=== PATIENT | female | born 1930 | race Caucasian/White ===

== ENCOUNTER 2017-07-17 19:29 | Inpatient (IN) | payer MEDICARE ==
--- NOTE | 2017-07-17 20:11 | ED Physician Chart ---
ED Chief Complaint/HPI - Patient Information Date Seen:: 07/17/17 Time Seen:: 21:45 Chief Complaint:: weakness History of Present Illness:: Patient has had poor oral intake and increased weakness over the last 2 weeks. Her balance has also been worse and she's fallen twice in the last 2 weeks. Daughter wants to admit patient to half-way. Historian:: Family Member Review:: Nurse's Note Reviewed ED Review of Systems - Review of Systems General/Constitutional: No fever, No chills, Weakness Skin: No skin lesions Head: No headache Eyes: No loss of vision ENT: No earache Neck: No neck pain Cardio Vascular: No chest pain GI: No nausea, No vomiting, No diarrhea G/U: No dysuria Musculoskeletal: No bone or joint pain, No back pain, No muscle pain Psychiatric: Prior psych history Hematopoietic: No bruising Allergic/Immuno: No urticaria Neurological: Syncope ED Past Medical History - Past Medical History Past Medical History: HTN, Dyslipidemia, Dementia Family History: None Social History: Non Smoker, No Alcohol Surgical History: None Psychiatricy History: Dementia Medication: Reviewed Family Medical History - Family Member Daughter Ethnicity: Living Status: Still Living ED Labs/Radiology/EKG Results - Lab Results Results: Laboratory Results - last 24 hr 07/17/17 07/17/17 22:04 22:04 WBC 6.4 RBC 4.38 Hgb 12.9 Hct 38.3 L MCV 87.5 MCH 29.5 MCHC Differential 33.8 RDW 12.7 Plt Count 239 MPV 8.8 Neutrophils % 64.5 Lymphocytes % 28.5 Monocytes % 6.0 Eosinophils % 0.4 Basophils % 0.6 Sodium 138 Potassium 4.0 Chloride 102 Carbon Dioxide 30.0 Anion Gap 10.0 BUN 30 H Creatinine 1.1 Est GFR ( Amer) TNP Est GFR (Non-Af Amer) TNP BUN/Creatinine Ratio 27.3 Glucose 116 H Calcium 9.5 Magnesium 2.1 ED Septic Shock - . Is Septic Shock (SBP<90, OR Lactate>4 mmol\L) present?: No ED Reassessment (Disposition) - Reassessment Reassessment Condition:: Unchanged - Diagnosis Diagnosis:: Dehydration - Patient Disposition Admitted to:: Med/Surg Admitting Medical Physician:: César Serrano Condition at Disposition:: Stable, Unchanged
[2017-07-17 22:10] LABS: % BASOPHILS 0.6 % (0.0-2.0); % EOSINOPHILS 0.4 % (0.0-5.0); % LYMPHOCYTES 28.5 % (20.0-50.0); % NEUTROPHILS 64.5 % (40.0-80.0); HEMATOCRIT 38.3 % (41.0-60); HEMOGLOBIN 12.9 gm/dL (12-16); LYMPHOCYTE ABSOLUTE 1.8 Th/cmm (1.5-3.0); MEAN CELL VOLUME 87.5 fl (81-100); MEAN CORPUSCULAR HEMOGLOBIN 29.5 pg (27.0-31.0); MEAN CORPUSCULAR HGB CONC 33.8 pg (28.0-36.0); MEAN PLATELET VOLUME 8.8 fl; MONOCYTE ABSOLUTE 0.4 Th/cmm (0.3-1.0); NEUTROPHILE ABSOLUTE 4.2 Th/cmm (1.8-8.0); PLATELET COUNT 239 Th/cmm (150-400); RED BLOOD COUNT 4.38 Mil/cmm (3.80-5.20); RED CELL DISTRIBUTION WIDTH 12.7 % (11.5-20.0); WHITE BLOOD COUNT 6.4 Th/cmm (4.8-10.8)
[2017-07-17 22:25] LABS: BUN - UREA NITROGEN 30 mg/dL (7-25); CALCIUM SERUM 9.5 mg/dL (8.6-10.3); CHLORIDE 102 mEq/L (98-107); CREATININE - SERUM 1.1 mg/dL (0.6-1.2); GLUCOSE 116 mg/dL (70-105); MAGNESIUM 2.1 mg/dL (1.9-2.7); SODIUM SERUM 138 mEq/L (136-145)
[2017-07-18 00:04] LABS: URINE MICROSCOPIC INDICATED? YES; URINE SOURCE RANDOM
[2017-07-18 00:19] LABS: URINE BILIRUBIN NEGATIVE (NEGATIVE); URINE BLOOD NEGATIVE (NEGATIVE); URINE CLARITY HAZY (CLEAR); URINE COLOR YELLOW; URINE GLUCOSE (UA) NEGATIVE (NEGATIVE); URINE KETONE NEGATIVE (NEGATIVE); URINE LEUKOCYTE ESTERASE MODERATE (NEGATIVE); URINE NITRATE POSITIVE (NEGATIVE); URINE PROTEIN NEGATIVE (NEGATIVE); URINE UROBILINOGEN 0.2 E.U./dL (0.2 - 1.0)
[2017-07-18 00:25] LABS: URINE EPITHELIAL CELLS FEW /lpf (FEW); URINE RBC 0-2 /hpf (0-5)
[2017-07-18 00:26] LABS: URINE BACTERIA 4+ /hpf (NONE SEEN)
[2017-07-18] MEDS ORDERED: cefTRIAXone 1 GM in Sodium Chloride 0.9% 50 ML IV ONE (01:04)
[2017-07-18 01:33] VITALS: BP 133/59
[2017-07-18] MEDS: D5-0.45NS w/20 mEq KCL 1,000 ML IV SCH ×2 (02:12→18:07)
[2017-07-18 06:57] LABS: % EOSINOPHILS 0.8 % (0.0-5.0); % LYMPHOCYTES 27.9 % (20.0-50.0); % MONOCYTES 8.1 % (2.0-10.0); % NEUTROPHILS 62.2 % (40.0-80.0); BASOPHILE ABSOLUTE 0.1 Th/cumm (0-0.2); HEMATOCRIT 36.4 % (41.0-60); HEMOGLOBIN 12.4 gm/dL (12-16); LYMPHOCYTE ABSOLUTE 1.5 Th/cmm (1.5-3.0); MEAN CELL VOLUME 86.3 fl (81-100); MEAN CORPUSCULAR HEMOGLOBIN 29.5 pg (27.0-31.0); MEAN CORPUSCULAR HGB CONC 34.1 pg (28.0-36.0); MEAN PLATELET VOLUME 9.5 fl; MONOCYTE ABSOLUTE 0.4 Th/cmm (0.3-1.0); NEUTROPHILE ABSOLUTE 3.5 Th/cmm (1.8-8.0); PLATELET COUNT 245 Th/cmm (150-400); RED BLOOD COUNT 4.21 Mil/cmm (3.80-5.20); RED CELL DISTRIBUTION WIDTH 12.4 % (11.5-20.0); WHITE BLOOD COUNT 5.5 Th/cmm (4.8-10.8)
[2017-07-18 07:25] LABS: ALB/GLOB RATIO 1.6 (1.0-1.8); ALBUMIN 4.2 gm/dL (3.7-5.3); ALKALINE PHOSPHATASE 49 U/L (34-104); ANION GAP 11.8 (7.0-16.0); BILIRUBIN,TOTAL 0.8 mg/dL (0.3-1.0); BUN - UREA NITROGEN 24 mg/dL (7-25); CALCIUM SERUM 9.3 mg/dL (8.6-10.3); CHLORIDE 104 mEq/L (98-107); GLUCOSE 108 mg/dL (70-105); POTASSIUM SERUM 3.8 mEq/L (3.5-5.1); SGOT 14 U/L (13-39); SGPT/ALT 10 U/L (7-52); SODIUM SERUM 138 mEq/L (136-145); TOTAL PROTEIN,SERUM 6.9 gm/dL (6.0-8.3)
[2017-07-18] MEDS ORDERED: cefTRIAXone 1 GM in Sodium Chloride 0.9% 50 ML IV SCH (14:15)
[2017-07-18] MEDS ORDERED: VTE Chemical Prophylaxis Screen/Admission MC PRN (16:59)
--- NOTE | 2017-07-18 18:17 | History & Physical ---
ADMIT DATE: 07/17/2017 CHIEF COMPLAINT: Altered level of consciousness and generalized weakness. HISTORY OF PRESENT ILLNESS: The patient is an 87-year-old female with long history of hypertension, degenerative joint disease, mild dementia, presented to the Emergency Room with altered level of consciousness. Initial workup sent for urinary tract infection, metabolic encephalopathy. Admitted to the hospital, started on IV fluid, IV antibiotic. The patient is a poor historian. PAST MEDICAL HISTORY: Significant for hypertension, mild dementia, degenerative joint disease. PAST SURGICAL HISTORY: No recent surgery. ALLERGIES: None. MEDICATIONS: Follow admission reconciliation. SOCIAL HISTORY: No smoking, no alcohol, no drug. FAMILY HISTORY: Noncontributory. REVIEW OF SYSTEMS: RENAL SYSTEM: No history of chronic renal disorder. CARDIOVASCULAR SYSTEM: History of hypertension. ENDOCRINE SYSTEM: No diabetes or thyroid problem. GASTROINTESTINAL SYSTEM: No upper or lower GI bleed. NEUROLOGICAL: She has history of dementia. PHYSICAL EXAMINATION: GENERAL: She is awake, not coherent. VITAL SIGNS: Temperature is 97.6, heart rate 66, blood pressure 133/59. HEENT: Normocephalic. Pupils are reacting to light and accommodation. The sclerae clear. NECK: Supple. Negative for lymphadenopathy, JVD or bruit. CHEST: Bilaterally normal. No rales, rhonchi or wheezing. HEART: S1, S2. No murmur or gallop rhythm. ABDOMEN: Soft, bowel sounds positive. EXTREMITIES: No edema. BACK: Nontender. SKIN: Intact. GENITAL AND RECTAL: No complaint. NEUROLOGIC: She is awake, alert, mildly confused. No focal motor or sensory deficits. Cranial nerves 2-12 are intact. LABORATORY DATA: White blood cell is 5.5, hemoglobin 12.4, hematocrit 36.4, platelet is 245. Sodium 138, potassium 3.8, BUN is 24, creatinine 1.0. Urinalysis: Specific gravity 0.015, nitrite positive, pH 6.0, white blood cells 10-25. ASSESSMENT: 1. Urinary tract infection. 2. Metabolic encephalopathy. 3. Hypertension. 4. Degenerative joint disease. 5. Mild dementia. PLAN: The patient admitted to the hospital under Dr. Serrano's service, started on fluid, IV antibiotic. Case discussed with the family. The patient is a full code. JOB# [id number]
[2017-07-18] MEDS: cefTRIAXone 1 GM in 0.9% NS 50 ML IV SCH (21:06)
[2017-07-19] MEDS: Atorvastatin Calcium 10 MG TAB PO SCH (09:49)
[2017-07-19] MEDS: D5-0.45NS w/20 mEq KCL 1,000 ML IV SCH (17:04)
--- NOTE | 2017-07-19 17:10 | General Progress Note ---
Subjective - Review of Systems Service Date: 07/19/17 Subjective: awake and smiling confused no distress daughter at bedside Objective - Results Result Diagrams: 07/18/17 06:27 07/18/17 06:27 Recent Labs: Laboratory Last Values WBC 5.5 Th/cmm (4.8-10.8) 07/18/17 06:27 RBC 4.21 Mil/cmm (3.80-5.20) 07/18/17 06:27 Hgb 12.4 gm/dL (12-16) 07/18/17 06:27 Hct 36.4 % (41.0-60) L 07/18/17 06:27 MCV 86.3 fl (81-100) 07/18/17 06: MCH 29.5 pg (27.0-31.0) 07/18/17 06: MCHC Differential 34.1 pg (28.0-36.0) 07/18/17 06: RDW 12.4 % (11.5-20.0) 07/18/17 06:27 Plt Count 245 Th/cmm (150-400) 07/18/17 06:27 MPV 9.5 fl 07/18/17 06:27 Neutrophils % 62.2 % (40.0-80.0) 07/18/17 06: Lymphocytes % 27.9 % (20.0-50.0) 07/18/17 06: Monocytes % 8.1 % (2.0-10.0) 07/18/17 06: Eosinophils % 0.8 % (0.0-5.0) 07/18/17 06:27 Basophils % 1.0 % (0.0-2.0) 07/18/17 06:27 Sodium 138 mEq/L (136-145) 07/18/17 06:27 Potassium 3.8 mEq/L (3.5-5.1) 07/18/17 06:27 Chloride 104 mEq/L (98-107) 07/18/17 06:27 Carbon Dioxide 26.0 mEq/L (21.0-31.0) 07/18/17 06: Anion Gap 11.8 (7.0-16.0) 07/18/17 06:27 BUN 24 mg/dL (7-25) 07/18/17 06:27 Creatinine 1.0 mg/dL (0.6-1.2) 07/18/17 06:27 Est GFR ( Amer) TNP 07/18/17 06:27 Est GFR (Non-Af Amer) TNP 07/18/17 06:27 BUN/Creatinine Ratio 24.0 07/18/17 06:27 Glucose 108 mg/dL (70-105) H 07/18/17 06:27 Calcium 9.3 mg/dL (8.6-10.3) 07/18/17 06:27 Magnesium 2.1 mg/dL (1.9-2.7) 07/17/17 22:04 Total Bilirubin 0.8 mg/dL (0.3-1.0) 07/18/17 06:27 AST 14 U/L (13-39) 07/18/17 06:27 ALT 10 U/L (7-52) 07/18/17 06:27 Alkaline Phosphatase 49 U/L (34-104) 07/18/17 06:27 Total Protein 6.9 gm/dL (6.0-8.3) 07/18/17 06:27 Albumin 4.2 gm/dL (3.7-5.3) 07/18/17 06:27 Globulin 2.7 gm/dL 07/18/17 06:27 Albumin/Globulin Ratio 1.6 (1.0-1.8) 07/18/17 06:27 Urine Source RANDOM 07/17/17 23:15 Urine Color YELLOW 07/17/17 23:15 Urine Clarity HAZY (CLEAR) 07/17/17 23:15 Urine pH 6.0 (4.6 - 8.0) 07/17/17 23:15 Ur Specific [place] 1.015 (1.005-1.030) 07/17/17 23:15 Urine Protein NEGATIVE mg/dL (NEGATIVE) 07/17/17 23:15 Urine Glucose (UA) NEGATIVE mg/dL (NEGATIVE) 07/17/17 23:15 Urine Ketones NEGATIVE mg/dL (NEGATIVE) 07/17/17 23:15 Urine Blood NEGATIVE (NEGATIVE) 07/17/17 23:15 Urine Nitrate POSITIVE (NEGATIVE) H 07/17/17 23:15 Urine Bilirubin NEGATIVE (NEGATIVE) 07/17/17 23:15 Urine Urobilinogen 0.2 E.U./dL (0.2 - 1.0) 07/17/17 23:15 Ur Leukocyte Esterase MODERATE (NEGATIVE) H 07/17/17 23:15 Urine RBC 0-2 /hpf (0-5) 07/17/17 23:15 Urine WBC 10-25 /hpf (0-5) H 07/17/17 23:15 Ur Epithelial Cells FEW /lpf (FEW) 07/17/17 23:15 Urine Bacteria 4+ /hpf (NONE SEEN) H 07/17/17 23:15 - Physical Exam Vitals and I&O: Vital Signs Temp 97.0 F 07/19/17 12:09 Pulse 98 07/19/17 12:09 Resp 20 07/19/17 12:09 BP 123/69 07/19/17 12:09 Pulse Ox 98 07/19/17 12:09 Intake & Output 07/18/17 07/19/17 07/19/17 18:59 06:59 18:59 Intake Total 1000 1000 Balance 1000 1000 Weight (lbs) 46.266 kg Intake: Intake, IV Amount 1000 1000 D5-0.45NS w/20 mEq KCL 1, 1000 1000 000 ml @ 75 mls/hr IV . [id number] [facility] Rx#:[id number] Other: # Voids 2 # Bowel Movements 0 Stool Characteristics Soft Soft Soft Brown Brown Brown Active Medications: Current Medications Atorvastatin Calcium (Lipitor) 10 mg PO DAILY [facility] Stop: 09/17/17 08:59 Last Admin: 07/19/17 09:49 Dose: 10 mg Heparin Sodium (Porcine) (Heparin) 5,000 units SUBQ Q12H [facility] Stop: 09/16/17 20:59 Last Admin: 07/19/17 09:49 Dose: 5,000 units Hydrochlorothiazide (Hctz) 25 mg PO DAILY [facility] Stop: 09/17/17 08:59 Last Admin: 07/19/17 09:49 Dose: 25 mg Potassium Chloride/Dextrose/Sod Cl (D5-0.45ns W/20 Meq Kcl) 1,000 mls @ 75 mls/ hr IV .[id number] [facility] Stop: 09/16/17 01:03 Last Admin: 07/19/17 17:04 Dose: 75 mls/hr Ceftriaxone Sodium 1 gm/ (Sodium Chloride) 50 mls @ 100 mls/hr IV Q24HR [facility] Stop: 09/16/17 20:59 Last Admin: 07/18/17 21:06 Dose: 100 mls/hr Losartan Potassium (Cozaar) 100 mg PO DAILY [facility] Stop: 09/17/17 08:59 Last Admin: 07/19/17 09:49 Dose: 100 mg Miscellaneous (Vte Chemical Prophylaxis Screen/ Admission) 1 ea [facility] PRN PRN PRN Reason: PROTOCOL Stop: 09/16/17 16:58 General: No acute distress HEENT: Atraumatic, PERRLA Neck: Supple, JVD Cardiovascular: Regular rate, Normal S1, Normal S2 Lungs: Clear to auscultation Abdomen: Bowel sounds, Soft Assessment/Plan - Assessment Assessment: UTI metabolic encephalopathy HTN DJD Dementia - Plan Plan: cont current treatment daughter wants SNF placement Nutritional Asmnt/Malnutr-PDOC - Dietary Evaluation Malnutrition Findings (Please click <Entered> for more info): Nutritional Asmnt/Malnutrition Start: 07/18/17 16: 04 Text: Status: Complete Freq: Document 07/18/17 16:04 LCHENG (Rec: 07/18/17 16:15 LCHENG [id number]) Nutritional Asmnt/Malnutrition Patient General Information Nutritional Screening High Risk Diagnosis dehydration, possible UTI Pertinent Medical Hx/Surgical Hx HTN, dyslipidemia, dementia Subjective Information Per H&P, pt had poor PO intake for 2 weeks, and has fallen twice. Pt seen lying in bed at time of visit, Bengali speaking, family at bedside. Spoke with nurse, pt ate lunch , tolerated well, needs assist with feeding. Current Diet Order/ Nutrition Support [facility] soft ground Pertinent Medications D5-0.45ns w 20meq kcl Pertinent Labs 2/2 Na 138, Na 3.8, Cl 104, BUN 24, Cr 1.0, Glucose 108, Ca 9.3 Nutritional Hx/Data Height 1.45 m Height (Calculated Centimeters) 144.8 Current Weight (lbs) 45.586 kg Weight (Calculated Kilograms) 45.6 Weight (Calculated Grams) 31265.0 [place] Body Weight 94 % [place] Body Weight 107 Body Mass Index (BMI) 21.7 Weight Status Approriate GI Symptoms GI Symptoms None Last BM no record Difficult in: None Skin Integrity/Comment: intact Estimated Nutritional Goals BEE in Kcals: Using Current wt Calories/Kcals/Kg 25-30 Kcals Calculated 0009-0509 Protein: Using Current wt Protein g/k-1.2 Protein Calculated 46-55 Fluid: ml 1150-1380ml (1ml/kcal) Nutritional Problem No current Nutrition Prob Problem N/A Malnutrition Alert Protein-Calorie Malnutrition N/A Is there a minimum of two criteria No selected? Query Text:Check all the applicable criteria. A minimum of two criteria are recommended for diagnosis of either severe or non-severe malnutrition. Intervention/Recommendation Comments 1. Continue with current diet as ordered. 2. Monitor PO intake, wt, labs and skin integrity 3. F/U as high risk in 2-3 days, 2/-2/ Expected Outcomes/Goals Expected Outcomes/Goals 1. PO intake to meet at least 75% of nutritional needs. 2. Wt stability, skin to remain intact, labs to approach WNL.
[2017-07-19] MEDS: cefTRIAXone 1 GM in 0.9% NS 50 ML IV SCH (22:22)
[2017-07-20] MEDS: Atorvastatin Calcium 10 MG TAB PO SCH (08:37)
--- NOTE | 2017-07-20 13:48 | General Progress Note ---
Subjective - Review of Systems Service Date: 07/20/17 Subjective: awake and smiling pleasantly confused no distress Objective - Results Result Diagrams: 07/18/17 06:27 07/18/17 06:27 Recent Labs: Laboratory Last Values WBC 5.5 Th/cmm (4.8-10.8) 07/18/17 06:27 RBC 4.21 Mil/cmm (3.80-5.20) 07/18/17 06:27 Hgb 12.4 gm/dL (12-16) 07/18/17 06:27 Hct 36.4 % (41.0-60) L 07/18/17 06:27 MCV 86.3 fl (81-100) 07/18/17 06: MCH 29.5 pg (27.0-31.0) 07/18/17 06: MCHC Differential 34.1 pg (28.0-36.0) 07/18/17 06: RDW 12.4 % (11.5-20.0) 07/18/17 06: Plt Count 245 Th/cmm (150-400) 07/18/17 06:27 MPV 9.5 fl 07/18/17 06:27 Neutrophils % 62.2 % (40.0-80.0) 07/18/17 06: Lymphocytes % 27.9 % (20.0-50.0) 07/18/17 06: Monocytes % 8.1 % (2.0-10.0) 07/18/17 06: Eosinophils % 0.8 % (0.0-5.0) 07/18/17 06: Basophils % 1.0 % (0.0-2.0) 07/18/17 06:27 Sodium 138 mEq/L (136-145) 07/18/17 06:27 Potassium 3.8 mEq/L (3.5-5.1) 07/18/17 06:27 Chloride 104 mEq/L (98-107) 07/18/17 06: Carbon Dioxide 26.0 mEq/L (21.0-31.0) 07/18/17 06: Anion Gap 11.8 (7.0-16.0) 07/18/17 06:27 BUN 24 mg/dL (7-25) 07/18/17 06:27 Creatinine 1.0 mg/dL (0.6-1.2) 07/18/17 06:27 Est GFR ( Amer) TNP 07/18/17 06:27 Est GFR (Non-Af Amer) TNP 07/18/17 06:27 BUN/Creatinine Ratio 24.0 07/18/17 06:27 Glucose 108 mg/dL (70-105) H 07/18/17 06:27 Calcium 9.3 mg/dL (8.6-10.3) 07/18/17 06:27 Magnesium 2.1 mg/dL (1.9-2.7) 07/17/17 22:04 Total Bilirubin 0.8 mg/dL (0.3-1.0) 07/18/17 06:27 AST 14 U/L (13-39) 07/18/17 06:27 ALT 10 U/L (7-52) 07/18/17 06:27 Alkaline Phosphatase 49 U/L (34-104) 07/18/17 06:27 Total Protein 6.9 gm/dL (6.0-8.3) 07/18/17 06:27 Albumin 4.2 gm/dL (3.7-5.3) 07/18/17 06:27 Globulin 2.7 gm/dL 07/18/17 06:27 Albumin/Globulin Ratio 1.6 (1.0-1.8) 07/18/17 06:27 Urine Source RANDOM 07/17/17 23:15 Urine Color YELLOW 07/17/17 23:15 Urine Clarity HAZY (CLEAR) 07/17/17 23:15 Urine pH 6.0 (4.6 - 8.0) 07/17/17 23:15 Ur Specific [place] 1.015 (1.005-1.030) 07/17/17 23:15 Urine Protein NEGATIVE mg/dL (NEGATIVE) 07/17/17 23:15 Urine Glucose (UA) NEGATIVE mg/dL (NEGATIVE) 07/17/17 23:15 Urine Ketones NEGATIVE mg/dL (NEGATIVE) 07/17/17 23:15 Urine Blood NEGATIVE (NEGATIVE) 07/17/17 23:15 Urine Nitrate POSITIVE (NEGATIVE) H 07/17/17 23:15 Urine Bilirubin NEGATIVE (NEGATIVE) 07/17/17 23:15 Urine Urobilinogen 0.2 E.U./dL (0.2 - 1.0) 07/17/17 23:15 Ur Leukocyte Esterase MODERATE (NEGATIVE) H 07/17/17 23:15 Urine RBC 0-2 /hpf (0-5) 07/17/17 23:15 Urine WBC 10-25 /hpf (0-5) H 07/17/17 23:15 Ur Epithelial Cells FEW /lpf (FEW) 07/17/17 23:15 Urine Bacteria 4+ /hpf (NONE SEEN) H 07/17/17 23:15 - Physical Exam Vitals and I&O: Vital Signs Temp 97.0 F 07/20/17 08:00 Pulse 66 07/20/17 08:36 Resp 18 07/20/17 08:00 BP 148/70 07/20/17 08:37 Pulse Ox 97 07/20/17 08:00 Intake & Output 07/19/17 07/20/17 07/20/17 18:59 06:59 18:59 Intake Total 1450 Balance 1450 Weight (lbs) 46.266 kg 45.722 kg Intake: Intake, IV Amount 1000 D5-0.45NS w/20 mEq KCL 1, 1000 000 ml @ 75 mls/hr IV . [id number] [facility] Rx#:[id number] Oral 450 Other: # Voids 2 3 # Bowel Movements 0 1 Stool Characteristics Soft Soft Soft Brown Brown Brown Active Medications: Current Medications Atorvastatin Calcium (Lipitor) 10 mg PO DAILY [facility] Stop: 09/17/17 08:59 Last Admin: 07/20/17 08:37 Dose: 10 mg Heparin Sodium (Porcine) (Heparin) 5,000 units SUBQ Q12H [facility] Stop: 09/16/17 20:59 Last Admin: 07/20/17 08:38 Dose: 5,000 units Hydrochlorothiazide (Hctz) 25 mg PO DAILY [facility] Stop: 09/17/17 08:59 Last Admin: 07/20/17 08:37 Dose: 25 mg Potassium Chloride/Dextrose/Sod Cl (D5-0.45ns W/20 Meq Kcl) 1,000 mls @ 75 mls/ hr IV .[id number] [facility] Stop: 09/16/17 01:03 Last Admin: 07/19/17 17:04 Dose: 75 mls/hr Ceftriaxone Sodium 1 gm/ (Sodium Chloride) 50 mls @ 100 mls/hr IV Q24HR [facility] Stop: 09/16/17 20:59 Last Admin: 07/19/17 22:22 Dose: 100 mls/hr Losartan Potassium (Cozaar) 100 mg PO DAILY [facility] Stop: 09/17/17 08:59 Last Admin: 07/20/17 08:36 Dose: 100 mg Miscellaneous (Vte Chemical Prophylaxis Screen/ Admission) 1 ea [facility] PRN PRN PRN Reason: PROTOCOL Stop: 09/16/17 16:58 General: No acute distress HEENT: Atraumatic, PERRLA Neck: Supple, JVD Cardiovascular: Regular rate, Normal S1, Normal S2 Lungs: Clear to auscultation Abdomen: Bowel sounds, Soft Assessment/Plan - Assessment Assessment: UTI metabolic encephalopathy HTN DJD Dementia - Plan Plan: cont current treatment Nutritional Asmnt/Malnutr-PDOC - Dietary Evaluation Malnutrition Findings (Please click <Entered> for more info): Nutritional Asmnt/Malnutrition Start: 07/18/17 16: 04 Text: Status: Complete Freq: Document 07/18/17 16:04 LCHENG (Rec: 07/18/17 16:15 L[facility]ENG [email or web address]) Nutritional Asmnt/Malnutrition Patient General Information Nutritional Screening High Risk Diagnosis dehydration, possible UTI Pertinent Medical Hx/Surgical Hx HTN, dyslipidemia, dementia Subjective Information Per H&P, pt had poor PO intake for 2 weeks, and has fallen twice. Pt seen lying in bed at time of visit, Portuguese speaking, family at bedside. Spoke with nurse, pt ate lunch , tolerated well, needs assist with feeding. Current Diet Order/ Nutrition Support [facility] soft ground Pertinent Medications D5-0.45ns w 20meq kcl Pertinent Labs 2/2 Na 138, Na 3.8, Cl 104, BUN 24, Cr 1.0, Glucose 108, Ca 9.3 Nutritional Hx/Data Height 1.45 m Height (Calculated Centimeters) 144.8 Current Weight (lbs) 45.586 kg Weight (Calculated Kilograms) 45.6 Weight (Calculated Grams) 43685.0 [place] Body Weight 94 % [place] Body Weight 107 Body Mass Index (BMI) 21.7 Weight Status Approriate GI Symptoms GI Symptoms None Last BM no record Difficult in: None Skin Integrity/Comment: intact Estimated Nutritional Goals BEE in Kcals: Using Current wt Calories/Kcals/Kg 25-30 Kcals Calculated 5756-2261 Protein: Using Current wt Protein g/k-1.2 Protein Calculated 46-55 Fluid: ml 1150-1380ml (1ml/kcal) Nutritional Problem No current Nutrition Prob Problem N/A Malnutrition Alert Protein-Calorie Malnutrition N/A Is there a minimum of two criteria No selected? Query Text:Check all the applicable criteria. A minimum of two criteria are recommended for diagnosis of either severe or non-severe malnutrition. Intervention/Recommendation Comments 1. Continue with current diet as ordered. 2. Monitor PO intake, wt, labs and skin integrity 3. F/U as high risk in 2-3 days, 2/-2/ Expected Outcomes/Goals Expected Outcomes/Goals 1. PO intake to meet at least 75% of nutritional needs. 2. Wt stability, skin to remain intact, labs to approach WNL.
[2017-07-20] MEDS: D5-0.45NS w/20 mEq KCL 1,000 ML IV SCH (13:57)
[2017-07-20] MEDS: cefTRIAXone 1 GM in 0.9% NS 50 ML IV SCH (20:46)
[2017-07-21] MEDS: D5-0.45NS w/20 mEq KCL 1,000 ML IV SCH (03:04)
[2017-07-21] MEDS: Atorvastatin Calcium 10 MG TAB PO SCH (08:06)
--- NOTE | 2017-08-07 20:26 | Discharge Summary ---
DATE OF DISCHARGE: 07/21/2017 FINAL DIAGNOSES: 1. Urinary infection. 2. Metabolic encephalopathy. 3. Hypertension. 4. Degenerative joint disease. 5. Mild dementia. REVIEW OF HISTORY: The patient is an 87-year-old female with long history of hypertension, degenerative joint disease, mild dementia, presented to the Emergency Room with altered level of consciousness. Since her initial workup, seen for urinary infection, metabolic encephalopathy, admitted to the hospital, started on IV fluid and antibiotic. PHYSICAL EXAMINATION: VITAL SIGNS: Temperature 97.6, heart rate 66, blood pressure 133/59. CHEST: Clear to auscultation. ABDOMEN: Soft, bowel sounds positive. EXTREMITIES: No edema. NEUROLOGIC: Awake, alert, not fully oriented. LABORATORY DATA: White blood 5.5, hemoglobin 12.4, hematocrit 36.4. Sodium 138, potassium 3.8, BUN 24, creatinine 1.0. COURSE OF HOSPITALIZATION: During hospitalization, the patient improved clinically. On 07/19/2017, the patient is eating well. No chest pain, no shortness of breath, no nausea, no vomiting. On 07/20/2017, the patient was tolerating her feeding well and medication. PT evaluation and treatment ordered. On 07/21/2017, the patient was clinically stable. DISPOSITION: [facility] medication and diet. CONDITION ON DISCHARGE: Stable. MEDICATIONS: Follow discharge reconciliation. JOB# [id number]
== END 2017-07-21 17:00 | DRG 689 ==
LOC: ER 19:29 → MSI 23:30
PROVIDERS: ADMIT Family Medicine; ATTEND Family Medicine
DX: N39.0 Urinary tract infection, site not specified (principal); G93.41 Metabolic encephalopathy; F03.90 Unspecified dementia, unspecified severity, without behavioral disturbance, psychotic disturbance, mood disturbance, and anxiety; E86.0 Dehydration; I10 Essential (primary) hypertension; M19.90 Unspecified osteoarthritis, unspecified site; E78.5 Hyperlipidemia, unspecified; Z66 Do not resuscitate
CPT/HCPCS: 36415-UA; 80048-TC; 80053-TC; 81001-TC; 81003-TC; 83735-TC; 85025-TC; 87086-90; 90784; J0696; J1644; X3904

== ENCOUNTER 2017-09-18 20:35 | Inpatient (IN) | payer MEDICARE, MEDICAID ==
--- NOTE | 2017-09-18 21:05 | ED Physician Chart ---
ED Chief Complaint/HPI - Patient Information Date Seen:: 09/18/17 Time Seen:: 20:50 Chief Complaint:: poor oral intake History of Present Illness:: Patient's had poor oral intake for 3 days. Patient has dementia and is unable to provide any history. Allergies:: Allergies Allergy/AdvReac Type Severity Reaction Status Date / Time aspirin Allergy Verified 09/18/17 20:53 Historian:: Patient Review:: Transfer documents Reviewed ED Review of Systems - Review of Systems General/Constitutional: Loss of appetite Skin: Skin lesions Head: No headache Eyes: No loss of vision ENT: No earache Neck: No neck pain, No swelling Cardio Vascular: No chest pain, No palpitations Pulmonary: No SOB GI: No nausea, No vomiting, No diarrhea Musculoskeletal: No bone or joint pain, No back pain, No muscle pain Endocrine: No polyuria, No polydipsia Psychiatric: Prior psych history Hematopoietic: No bruising, No lymphadenopathy Allergic/Immuno: No urticaria, No angioedema Neurological: No syncope ED Past Medical History - Past Medical History Past Medical History: HTN, Asthma/COPD, Dyslipidemia, Dementia, Other ( hyperlipidemia; metabolic encephalopathy) Family History: Other (unavailable) Social History: Care Facility Surgical History: other (unknown) Psychiatricy History: Dementia Medication: Reviewed Family Medical History - Family Member Daughter History Unknown: Yes Ethnicity: Living Status: Still Living Mother History Unknown: Yes ED Physical Exam - Physical Examination General/Constitutional: Well-developed, well-nourished, Alert Other Gen/Cons comments:: Patient is minimally verbal Head: Atraumatic Eyes: Lids, conjuctiva normal, PERRL Skin: Nl inspection, No rash, No skin lesions, No ecchymosis, Well hydrated ENMT: External ears, nose nl, Nasal exam nl, Lips, teeth, gums nl Respiratory: Clear to Auscultation Cardio Vascular: RRR, No murmur, gallop, rubs, NL S1 S2 GI: No tenderness/rebounding/guarding, No organomegaly, No hernia, Normal BS's, Nondistended, No mass/bruits : No CVA tenderness Extremities: Normal digits & nails Neuro/Psych: No focal deficits ED Labs/Radiology/EKG Results - Lab Results Results: Laboratory Results - last 24 hr 09/18/17 09/18/17 21:00 21:00 WBC 7.9 RBC 4.70 Hgb 13.9 Hct 40.8 L MCV 86.7 MCH 29.6 MCHC Differential 34.1 RDW 12.2 Plt Count 329 MPV 8.9 Neutrophils % 77.0 Lymphocytes % 18.7 L Monocytes % 3.5 Eosinophils % 0.6 Basophils % 0.2 Sodium 136 Potassium 3.2 L Chloride 99 Carbon Dioxide 26.6 Anion Gap 13.6 BUN 19 Creatinine 0.8 Est GFR ( Amer) TNP Est GFR (Non-Af Amer) TNP BUN/Creatinine Ratio 23.8 Glucose 129 H Calcium 9.6 - Radiology Results Results: Chest x-ray showed increased interstitial markings but was otherwise normal - EKG Interpretations Rate & Rhythm: normal sinus rhythm with a rate of 88 [place]: normal Comments:: Q waves in leads 3 and aVF ED Reassessment (Disposition) - Reassessment Reassessment Condition:: Unchanged - Diagnosis Diagnosis:: Hypokalemia; dementia
[2017-09-18 21:13] LABS: % BASOPHILS 0.2 % (0.0-2.0); % EOSINOPHILS 0.6 % (0.0-5.0); % LYMPHOCYTES 18.7 % (20.0-50.0); % MONOCYTES 3.5 % (2.0-10.0); HEMATOCRIT 40.8 % (41.0-60); HEMOGLOBIN 13.9 gm/dL (12-16); LYMPHOCYTE ABSOLUTE 1.5 Th/cmm (1.5-3.0); MEAN CELL VOLUME 86.7 fl (81-100); MEAN CORPUSCULAR HEMOGLOBIN 29.6 pg (27.0-31.0); MEAN CORPUSCULAR HGB CONC 34.1 pg (28.0-36.0); MEAN PLATELET VOLUME 8.9 fl; MONOCYTE ABSOLUTE 0.3 Th/cmm (0.3-1.0); NEUTROPHILE ABSOLUTE 6.1 Th/cmm (1.8-8.0); PLATELET COUNT 329 Th/cmm (150-400); RED CELL DISTRIBUTION WIDTH 12.2 % (11.5-20.0); WHITE BLOOD COUNT 7.9 Th/cmm (4.8-10.8)
[2017-09-18 21:25] LABS: ANION GAP 13.6 (7.0-16.0); BUN - UREA NITROGEN 19 mg/dL (7-25); CALCIUM SERUM 9.6 mg/dL (8.6-10.3); CARBON DIOXIDE 26.6 mEq/L (21.0-31.0); CHLORIDE 99 mEq/L (98-107); CREATININE - SERUM 0.8 mg/dL (0.6-1.2); GLUCOSE 129 mg/dL (70-105); POTASSIUM SERUM 3.2 mEq/L (3.5-5.1); SODIUM SERUM 136 mEq/L (136-145)
[2017-09-18] MEDS ORDERED: Potassium Chloride 20 mEq ER Tab PO ONE ×2 (21:34→21:35)
[2017-09-18 23:35] VITALS: BP 107/74
[2017-09-19] MEDS: D5-0.45NS w/20 mEq KCL 1,000 ML IV SCH ×2 (00:36→14:27)
--- NOTE | 2017-09-19 07:26 | Diagnostic Imaging Report ---
CHEST X-RAY: AP view INDICATION: Pneumonia COMPARISON: None FINDINGS: Chronic lung changes are noted. There is no focal consolidation or pleural effusions. Vessel on end versus 6 mm calcified granuloma of the right lower lobe is noted. The heart is normal in size. Atherosclerosis is noted. Degenerative changes of the spine are noted. Nonspecific gas-filled loops of bowel of the upper abdomen are noted. IMPRESSION: Chronic lung changes with no focal consolidation identified. Atherosclerotic vascular disease.
[2017-09-19] MEDS ORDERED: VTE Chemical Prophylaxis Screen/Admission MC PRN (14:11)
[2017-09-19] MEDS ORDERED: Magnesium Hydroxide (MOM) 30 mL UDC PO PRN (20:26)
--- NOTE | 2017-09-19 21:08 | Consultation ---
DATE OF CONSULTATION: 09/19/2017 IDENTIFYING INFORMATION: The patient is an 87-year-old female. REASON FOR CONSULTATION: To assess. HISTORY OF PRESENT ILLNESS: The patient was admitted with altered level of consciousness. The patient is a well-known case to me, has been seeing her at [facility]. She is demented, confused. The patient is unable to give information, I talked to her through a security monitor, was unable to tell the date, where she is, why she was here. Also, she has been eating well for a few days, unable to give any information. PAST PSYCHIATRIC HISTORY: Dementia. MEDICAL HISTORY: The patient has hypertension, asthma, COPD, dyslipidemia, metabolic encephalopathy. MEDICATIONS: I do not see any medication ordered for her. I do have her on Aricept 10 mg at bedtime that I will restart. ADDENDUM MEDICAL HISTORY: THE PATIENT IS ALLERGIC TO ASPIRIN. I will reinitiate the Aricept. FAMILY AND SOCIAL HISTORY: Unobtainable. The patient has been staying at [facility]. MENTAL STATUS EXAMINATION: The patient is alert, unable to participate in meaningful conversation or make safe plan for self-care, unpredictable, impulsive. She was having altered level of consciousness, talked to her through a security monitor. She did not make sense, cannot tell her age, where she is, why she is here, unable to participate in meaningful conversation. She has been not acting, agitated. Her insight and judgment is impaired. IMPRESSION: AXIS I: Dementia, rule out delirium or metabolic encephalopathy. MEDICAL DIAGNOSES: Deferred to the medical doctor. PLAN: I would recommend to restart the Aricept and I will follow up with the patient. If the patient needs to go to [facility] that will be fine if she is still not acting right. Thank you very much for allowing me to participate in care of this most interesting lady. JOB# [id number]
--- NOTE | 2017-09-19 21:41 | History & Physical ---
ADMIT DATE: CHIEF COMPLAINT: Altered level of consciousness, confusion. HISTORY OF PRESENT ILLNESS: The patient is an 87-year-old female with long history of hypertension, degenerative joint disease, presented to the Emergency Room with altered level of consciousness, confusion. The patient evaluated by the ER physician, admitted to the hospital with dehydration, metabolic encephalopathy. 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 The patient is a poor historian. PAST MEDICAL HISTORY: Significant for hypertension, hyperlipidemia, degenerative joint disease, mild dementia. PAST SURGICAL HISTORY: Cyst surgery. ALLERGIES: None. MEDICATIONS: Follow admission reconciliation. SOCIAL HISTORY: No smoking, alcohol or drug use. FAMILY HISTORY: Noncontributory. REVIEW OF SYSTEMS: RENAL SYSTEM: No history of chronic renal disorder. CARDIOVASCULAR SYSTEM: No coronary artery disease. ENDOCRINE SYSTEM: No diabetes or thyroid problem. GASTROINTESTINAL SYSTEM: No upper or lower gastrointestinal bleed. NEUROLOGICAL SYSTEM: Mild dementia. MUSCULOSKELETAL SYSTEM: She has degenerative joint disease. PHYSICAL EXAMINATION: GENERAL: She is awake, alert. VITAL SIGNS: Temperature 98.7, heart rate 88, blood pressure 144/74. HEENT: Normocephalic. Pupils reactive to light and accommodation. Sclerae clear. NECK: Supple. Negative for lymphadenopathy, JVD or bruit. CHEST: Air bilaterally normal. No rhonchi or wheezing. HEART: S1, S2 normal. No murmur or gallop rhythm. ABDOMEN: Soft. Bowel sounds positive. EXTREMITIES: No edema. NEUROLOGIC: She is awake, not coherent. LABORATORY DATA: Sodium 136, potassium 3.2, BUN 19, creatinine 0.8. White blood 7.9, hemoglobin 13.9, hematocrit 40.8 and platelet 329. ASSESSMENT: 1. Acute altered level of consciousness. 2. Confusion. 3. Possible metabolic encephalopathy. 4. Hypertension. 5. Hyperlipidemia. 6. Degenerative joint disease. PLAN: The patient is admitted to the hospital under Dr. 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 The patient will resume her medication. Psych evaluation ordered. JOB# [id number]
[2017-09-19] MEDS: Atorvastatin Calcium 10 MG TAB PO SCH (22:17)
--- NOTE | 2017-09-20 03:41 | Consultation ---
DATE OF CONSULTATION: 09/19/2017 ADDENDUM MEDICAL HISTORY: THE PATIENT IS ALLERGIC TO ASPIRIN. I will reinitiate the Aricept. FAMILY AND SOCIAL HISTORY: Unobtainable. The patient has been staying at [place]. MENTAL STATUS EXAMINATION: The patient is alert, unable to participate in meaningful conversation or make safe plan for self-care, unpredictable, impulsive. She was having altered level of consciousness, talked to her through a certified medication aide. She did not make sense, cannot tell her age, where she is, why she is here, unable to participate in meaningful conversation. She has been not acting, agitated. Her insight and judgment is impaired. IMPRESSION: AXIS I: Dementia, rule out delirium or metabolic encephalopathy. MEDICAL DIAGNOSES: Deferred to the medical doctor. PLAN: I would recommend to restart the Aricept and I will follow up with the patient. If the patient needs to go to [facility] that will be fine if she is still not acting right. Thank you very much for allowing me to participate in care of this most interesting lady. [facility]# [id number]
[2017-09-20] MEDS: D5-0.45NS w/20 mEq KCL 1,000 ML IV SCH ×2 (04:51→15:42)
[2017-09-20 07:40] LABS: ALB/GLOB RATIO 1.2 (1.0-1.8); ALBUMIN 3.4 gm/dL (3.7-5.3); ALKALINE PHOSPHATASE 49 U/L (34-104); ANION GAP 8.3 (7.0-16.0); BILIRUBIN,TOTAL 0.9 mg/dL (0.3-1.0); BUN - UREA NITROGEN 9 mg/dL (7-25); CALCIUM SERUM 8.6 mg/dL (8.6-10.3); CHLORIDE 106 mEq/L (98-107); CREATININE - SERUM 0.6 mg/dL (0.6-1.2); GLUCOSE 110 mg/dL (70-105); POTASSIUM SERUM 4.3 mEq/L (3.5-5.1); SGOT 14 U/L (13-39); SGPT/ALT 10 U/L (7-52); SODIUM SERUM 136 mEq/L (136-145); TOTAL PROTEIN,SERUM 6.2 gm/dL (6.0-8.3)
[2017-09-20] MEDS ORDERED: Non-Formulary Item 1 EA (Cranberry Fruit Concentrate [Cranberry] 450 MG) PO SCH (09:00)
[2017-09-20] MEDS: Multivitamin Tab PO SCH (09:34)
--- NOTE | 2017-09-20 12:37 | Internal Medicine Prog Note ---
Internal Medicine Subjective - Subjective Service Date: 09/20/17 Patient seen and examined:: with staff Patient is:: awake, in bed, confused Per staff patient has:: no adverse event Internal Medicine Objective - Results Result Diagrams: 09/18/17 21:00 09/20/17 05:49 Recent Labs: Laboratory Last Values WBC 7.9 Th/cmm (4.8-10.8) 09/18/17 21:00 RBC 4.70 Mil/cmm (3.80-5.20) 09/18/17 21:00 Hgb 13.9 gm/dL (12-16) 09/18/17 21:00 Hct 40.8 % (41.0-60) L 09/18/17 21:00 MCV 86.7 fl (81-100) 09/18/17 21:00 MCH 29.6 pg (27.0-31.0) 09/18/17 21:00 MCHC Differential 34.1 pg (28.0-36.0) 09/18/17 21:00 RDW 12.2 % (11.5-20.0) 09/18/17 21:00 Plt Count 329 Th/cmm (150-400) 09/18/17 21:00 MPV 8.9 fl 09/18/17 21:00 Neutrophils % 77.0 % (40.0-80.0) 09/18/17 21:00 Lymphocytes % 18.7 % (20.0-50.0) L 09/18/17 21:00 Monocytes % 3.5 % (2.0-10.0) 09/18/17 21:00 Eosinophils % 0.6 % (0.0-5.0) 09/18/17 21:00 Basophils % 0.2 % (0.0-2.0) 09/18/17 21:00 Sodium 136 mEq/L (136-145) 09/20/17 05:49 Potassium 4.3 mEq/L (3.5-5.1) 09/20/17 05:49 Chloride 106 mEq/L (98-107) 09/20/17 05:49 Carbon Dioxide 26.0 mEq/L (21.0-31.0) 09/20/17 05:49 Anion Gap 8.3 (7.0-16.0) 09/20/17 05:49 BUN 9 mg/dL (7-25) 09/20/17 05:49 Creatinine 0.6 mg/dL (0.6-1.2) 09/20/17 05:49 Est GFR ( Amer) TNP 09/20/17 05:49 Est GFR (Non-Af Amer) TNP 09/20/17 05:49 BUN/Creatinine Ratio 15.0 09/20/17 05:49 Glucose 110 mg/dL (70-105) H 09/20/17 05:49 Calcium 8.6 mg/dL (8.6-10.3) 09/20/17 05:49 Total Bilirubin 0.9 mg/dL (0.3-1.0) 09/20/17 05:49 AST 14 U/L (13-39) 09/20/17 05:49 ALT 10 U/L (7-52) 09/20/17 05:49 Alkaline Phosphatase 49 U/L (34-104) 09/20/17 05:49 Total Protein 6.2 gm/dL (6.0-8.3) 09/20/17 05:49 Albumin 3.4 gm/dL (3.7-5.3) L 09/20/17 05:49 Globulin 2.8 gm/dL 09/20/17 05:49 Albumin/Globulin Ratio 1.2 (1.0-1.8) 09/20/17 05:49 - Physical Exam Vitals and I&O: Vital Signs Temp 97.1 F 09/20/17 10:25 Pulse 69 09/20/17 10:25 Resp 17 09/20/17 10:25 BP 137/65 09/20/17 10:25 Pulse Ox 99 09/20/17 10:25 Intake & Output 09/19/17 09/20/17 09/20/17 18:59 06:59 18:59 Intake Total 1250 1000 Balance 1250 1000 Weight (lbs) 44.543 kg 44.906 kg Intake: Intake, IV Amount 1000 1000 D5-0.45NS w/20 mEq KCL 1, 1000 1000 000 ml @ 75 mls/hr IV . [id number] [facility] Rx#:[id number] Oral 250 Tube Feeding 0 Other: # Voids 3 # Bowel Movements 2 1 Stool Characteristics Soft Soft Brown Brown Weight Source Bedscale Bedscale Active Medications: Current Medications Acetaminophen (Tylenol) 650 mg PO Q4HR PRN PRN Reason: Pain or Fever >101 Stop: 11/18/17 20:25 Atorvastatin Calcium (Lipitor) 10 mg PO HS [place]RIA PRN Reason: Protocol Stop: 11/18/17 20:59 Last Admin: 09/19/17 22:17 Dose: 10 mg Donepezil HCl (Aricept) 10 mg PO HS [place]RI[place] Stop: 11/18/17 20:59 Last Admin: 09/19/17 22:17 Dose: 10 mg Heparin Sodium (Porcine) (Heparin) 5,000 units SUBQ Q12H [place] Stop: 11/18/17 20:59 Last Admin: 09/20/17 09:35 Dose: 5,000 units Potassium Chloride/Dextrose/Sod Cl (D5-0.45ns W/20 Meq Kcl) 1,000 mls @ 75 mls/ hr IV .[id number] ANDRIA Stop: 11/17/17 21:44 Last Admin: 09/20/17 04:51 Dose: 75 mls/hr Losartan Potassium (Cozaar) 100 mg PO DAILY [place] Stop: 11/19/17 08:59 Last Admin: 09/20/17 09:34 Dose: 100 mg Magnesium Hydroxide (Milk Of Magnesia) 30 ml PO DAILY PRN PRN Reason: Constipation Stop: 11/18/17 20:25 Megestrol Acetate (Megace) 400 mg PO BID ANDRIA PRN Reason: Protocol Stop: 11/19/17 08:59 Last Admin: 09/20/17 09:32 Dose: 400 mg Mirtazapine (Remeron) 7.5 mg PO HS ANDRIA PRN Reason: Protocol Stop: 11/18/17 20:59 Miscellaneous (Vte Chemical Prophylaxis Screen/ Admission) 1 ea [facility] PRN PRN PRN Reason: PROTOCOL Stop: 11/18/17 14:10 Miscellaneous (Cranberry Fruit Concentrate [Cranberry]) 450 mg PO DAILY [facility] Stop: 11/19/17 08:59 Multivitamins/Vitamin C (Theragran) 1 tab PO DAILY [place] Stop: 11/19/17 08:59 Last Admin: 09/20/17 09:34 Dose: 1 tab General: demented HEENT: NC/AT, PERRLA, EOMI, anicteric sclerae, throat clear Neck: Supple, No JVD, No thyromegaly, +2 carotid pulse wo bruit, No LAD Lungs: CTAB Cardiovascular: Normal S1, Normal S2 Abdomen: non-tender, non-distended Extremities: clear Neurological: no change Internal Medicine Assmt/Plan - Assessment Assessment: 1.ALOC. 2.HTN. 3.DEMENTIA - Plan Plan: CONTINUE ON CURRENT MEDICATION AND DIET.
[2017-09-20] MEDS: Atorvastatin Calcium 10 MG TAB PO SCH (21:19)
[2017-09-21] MEDS: D5-0.45NS w/20 mEq KCL 1,000 ML IV SCH ×2 (02:36→18:38)
[2017-09-21] MEDS: Multivitamin Tab PO SCH (08:52)
--- NOTE | 2017-09-21 15:25 | Internal Medicine Prog Note ---
Internal Medicine Subjective - Subjective Service Date: 09/21/17 Patient seen and examined:: with staff (SHE IS EATING BETTER) Patient is:: awake, in bed, confused Per staff patient has:: no adverse event Internal Medicine Objective - Results Result Diagrams: 09/18/17 21:00 09/20/17 05:49 Recent Labs: Laboratory Last Values WBC 7.9 Th/cmm (4.8-10.8) 09/18/17 21:00 RBC 4.70 Mil/cmm (3.80-5.20) 09/18/17 21:00 Hgb 13.9 gm/dL (12-16) 09/18/17 21:00 Hct 40.8 % (41.0-60) L 09/18/17 21:00 MCV 86.7 fl (81-100) 09/18/17 21:00 MCH 29.6 pg (27.0-31.0) 09/18/17 21:00 MCHC Differential 34.1 pg (28.0-36.0) 09/18/17 21:00 RDW 12.2 % (11.5-20.0) 09/18/17 21:00 Plt Count 329 Th/cmm (150-400) 09/18/17 21:00 MPV 8.9 fl 09/18/17 21:00 Neutrophils % 77.0 % (40.0-80.0) 09/18/17 21:00 Lymphocytes % 18.7 % (20.0-50.0) L 09/18/17 21:00 Monocytes % 3.5 % (2.0-10.0) 09/18/17 21:00 Eosinophils % 0.6 % (0.0-5.0) 09/18/17 21:00 Basophils % 0.2 % (0.0-2.0) 09/18/17 21:00 Sodium 136 mEq/L (136-145) 09/20/17 05:49 Potassium 4.3 mEq/L (3.5-5.1) 09/20/17 05:49 Chloride 106 mEq/L (98-107) 09/20/17 05:49 Carbon Dioxide 26.0 mEq/L (21.0-31.0) 09/20/17 05:49 Anion Gap 8.3 (7.0-16.0) 09/20/17 05:49 BUN 9 mg/dL (7-25) 09/20/17 05:49 Creatinine 0.6 mg/dL (0.6-1.2) 09/20/17 05:49 Est GFR ( Amer) TNP 09/20/17 05:49 Est GFR (Non-Af Amer) TNP 09/20/17 05:49 BUN/Creatinine Ratio 15.0 09/20/17 05:49 Glucose 110 mg/dL (70-105) H 09/20/17 05:49 Calcium 8.6 mg/dL (8.6-10.3) 09/20/17 05:49 Total Bilirubin 0.9 mg/dL (0.3-1.0) 09/20/17 05:49 AST 14 U/L (13-39) 09/20/17 05:49 ALT 10 U/L (7-52) 09/20/17 05:49 Alkaline Phosphatase 49 U/L (34-104) 09/20/17 05:49 Total Protein 6.2 gm/dL (6.0-8.3) 09/20/17 05:49 Albumin 3.4 gm/dL (3.7-5.3) L 09/20/17 05:49 Globulin 2.8 gm/dL 09/20/17 05:49 Albumin/Globulin Ratio 1.2 (1.0-1.8) 09/20/17 05:49 - Physical Exam Vitals and I&O: Vital Signs Temp 97.1 F 09/21/17 12:00 Pulse 77 09/21/17 12:00 Resp 18 09/21/17 12:00 BP 141/85 09/21/17 12:00 Pulse Ox 99 09/21/17 12:00 Intake & Output 09/20/17 09/21/17 09/21/17 18:59 06:59 18:59 Intake Total 1163.75 817.5 Output Total 1 Balance 1163.75 816.5 Weight (lbs) 44.906 kg 45.677 kg Intake: Intake, IV Amount 813.75 817.5 D5-0.45NS w/20 mEq KCL 1, 813.75 817.5 000 ml @ 75 mls/hr IV . [id number] [facility] Rx#:[id number] Oral 350 Output: Urine/Stool Mix 1 Other: # Voids 3 1 # Bowel Movements 1 Stool Characteristics Soft Soft Soft Brown Brown Brown Weight Source Bedscale Bedscale Active Medications: Current Medications Acetaminophen (Tylenol) 650 mg PO Q4HR PRN PRN Reason: Pain or Fever >101 Stop: 11/18/17 20:25 Atorvastatin Calcium (Lipitor) 10 mg PO HS [place]RIA PRN Reason: Protocol Stop: 11/18/17 20:59 Last Admin: 09/20/17 21:19 Dose: 10 mg Donepezil HCl (Aricept) 10 mg PO HS [place] Stop: 11/18/17 20:59 Last Admin: 09/20/17 21:19 Dose: 10 mg Heparin Sodium (Porcine) (Heparin) 5,000 units SUBQ Q12H [place] Stop: 11/18/17 20:59 Last Admin: 09/21/17 08:52 Dose: 5,000 units Potassium Chloride/Dextrose/Sod Cl (D5-0.45ns W/20 Meq Kcl) 1,000 mls @ 75 mls/ hr IV .[id number] [facility] Stop: 11/17/17 21:44 Last Admin: 09/21/17 02:36 Dose: 75 mls/hr Losartan Potassium (Cozaar) 100 mg PO DAILY [facility] Stop: 11/19/17 08:59 Last Admin: 09/21/17 08:51 Dose: 100 mg Magnesium Hydroxide (Milk Of Magnesia) 30 ml PO DAILY PRN PRN Reason: Constipation Stop: 11/18/17 20:25 Megestrol Acetate (Megace) 400 mg PO BID [place] PRN Reason: Protocol Stop: 11/19/17 08:59 Last Admin: 09/21/17 08:51 Dose: 400 mg Mirtazapine (Remeron) 7.5 mg PO HS [place]RI[place] PRN Reason: Protocol Stop: 11/18/17 20:59 Miscellaneous (Vte Chemical Prophylaxis Screen/ Admission) 1 ea [facility] PRN PRN PRN Reason: PROTOCOL Stop: 11/18/17 14:10 Multivitamins/Vitamin C (Theragran) 1 tab PO DAILY [facility] Stop: 11/19/17 08:59 Last Admin: 09/21/17 08:52 Dose: 1 tab General: demented HEENT: NC/AT, PERRLA, EOMI, anicteric sclerae, throat clear Neck: Supple, No JVD, No thyromegaly, +2 carotid pulse wo bruit, No LAD Lungs: CTAB Cardiovascular: Normal S1, Normal S2 Abdomen: non-tender, non-distended Extremities: clear Neurological: no change Internal Medicine Assmt/Plan - Assessment Assessment: 1.ALOC. 2.HTN. 3.DEMENTIA - Plan Plan: CONTINUE ON CURRENT MEDICATION AND DIET.
[2017-09-21] MEDS: Atorvastatin Calcium 10 MG TAB PO SCH (22:16)
[2017-09-22] MEDS: D5-0.45NS w/20 mEq KCL 1,000 ML IV SCH (06:33)
[2017-09-22] MEDS: Multivitamin Tab PO SCH (08:38)
--- NOTE | 2017-10-10 17:42 | Discharge Summary ---
DATE OF DISCHARGE: 09/22/2017 FINAL DIAGNOSES: 1. Acute altered level of consciousness secondary to metabolic encephalopathy. 2. Hypertension. 3. Hyperlipidemia. 4. Degenerative joint disease. 5. Dementia. REVIEW OF HISTORY: The patient is an 87-year-old female with long history of hypertension, degenerative joint disease, dementia, presented to the emergency room with acute altered level of consciousness, evaluated by the ER physician, admitted to hospital. PHYSICAL EXAMINATION: VITAL SIGNS: Temperature 98.7, heart rate 88, and blood pressure 144/74. CHEST: Clear to auscultation. ABDOMEN: Soft, bowel sounds positive. NEUROLOGIC: Awake, not coherent. LABORATORY DATA: Sodium 136, potassium 3.2, BUN 19, and creatinine 0.8. White blood cells 7.9, hemoglobin 13.9. The patient started on IV fluid. ____. COURSE OF HOSPITALIZATION: During hospitalization, the patient remained stable clinically and evaluated by the physical therapy and psychiatrist. On 09/21/2017, the patient was eating well. No chest pain or shortness of breath, no nausea, no vomiting. Chest clear to auscultation. Abdomen is soft, bowel sounds positive. DISPOSITION: On 09/22/2017, the patient was transferred to Geropysch Department to continue on her medication and diet. CONDITION ON DISCHARGE: Stable. MEDICATION: Follow discharge reconciliation. [facility]# [id number]
== END 2017-09-22 14:15 | DRG 640 ==
LOC: ER 20:35 → MSI 21:40
PROVIDERS: ADMIT Family Medicine; ATTEND Family Medicine
DX: E86.0 Dehydration (principal); G93.41 Metabolic encephalopathy; I10 Essential (primary) hypertension; E78.5 Hyperlipidemia, unspecified; M19.90 Unspecified osteoarthritis, unspecified site; F03.90 Unspecified dementia, unspecified severity, without behavioral disturbance, psychotic disturbance, mood disturbance, and anxiety; R45.87 Impulsiveness; Z66 Do not resuscitate; J44.9 Chronic obstructive pulmonary disease, unspecified; E87.6 Hypokalemia; Z88.6 Allergy status to analgesic agent
CPT/HCPCS: 36415-UA; 71045-TC; 80048-TC; 80053-TC; 85025-TC; 90784; 93005; J1644; Z7610

== ENCOUNTER 2017-09-22 14:16 | Inpatient (IN) | payer MEDICARE, MEDICAID ==
[2017-09-22 15:26] VITALS: BP 142/82
[2017-09-22] MEDS ORDERED: Maalox 30 mL Cup PO PRN (15:28)
[2017-09-22] MEDS ORDERED: Magnesium Hydroxide (MOM) 30 mL UDC PO PRN ×3 (15:28→15:37)
[2017-09-22] MEDS: Atorvastatin Calcium 10 MG TAB PO SCH ×2 (21:32→21:59)
--- NOTE | 2017-09-22 22:53 | Progress Notes ---
DATE: 09/22/2017 Case was discussed with staff of the patient. Staff report, the patient has been agitated, irritable. She is medically cleared today and she will be transferred to the [facility] now. She is still unable to participate in meaningful conversation or make safe plan for self-care, unable to needing redirection. She is on Remeron 7.5 mg at bedtime and Aricept 10 mg at bedtime. We will continue to work with the patient in group therapy, milieu therapy, and adjust the medications as needed. JOB# [id number]
[2017-09-23] MEDS ORDERED: Non-Formulary Item 1 EA (Cranberry Fruit Concentrate [Cranberry] 450 MG) PO SCH (09:00)
[2017-09-23] MEDS ORDERED: Non-Formulary Item 1 EA (Multivitamin [Multivitamins] 1 CAP) PO SCH (09:00)
[2017-09-23] MEDS: Multivitamin Tab PO SCH (10:13)
--- NOTE | 2017-09-23 11:38 | Psychosocial Evaluation ---
DATE OF SERVICE: 09/23/2017 IDENTIFYING INFORMATION: The patient is an 87-year-old female. CHIEF COMPLAINT: No answer. HISTORY OF PRESENT ILLNESS: The patient was sent from [place] because of agitation. The patient herself was a poor historian, unable to make safe plan for self-care. I took him through [place] translation she was not making sense. I know her from [place], diagnosed with dementia. The patient has been irritable, easily agitated, unable to participate in meaningful conversation or make safe plan for self-care. PAST PSYCHIATRIC HISTORY: Dementia and agitation. MEDICAL HISTORY: Deferred to the medical doctor. FAMILY AND SOCIAL HISTORY: Unobtainable, though I do have information on her records at [place], but they are not available to me right now. Family is supportive. MENTAL STATUS EXAMINATION: The patient is appropriately dressed and well-groomed. She was alert, not making sense, easily agitated, irritable, unable to make safe plan for self-care, unpredictable, impulsive, unable to tell me the date, age, where she is, why she is here. Long and short term memory is poor. Insight and judgment is impaired. IMPRESSION: AXIS I: Psychosis, not otherwise specified, dementia. MEDICAL DIAGNOSES: The deferred to the medical doctor. Her assets, she is accepting treatment. Negative poor coping skills. INITIAL TREATMENT PLAN: The patient will be continued with her medication Namenda, Aricept and Remeron. We will do group therapy, milieu therapy, and individual therapy. ESTIMATED LENGTH OF STAY: 3-7 days. DISCHARGE CRITERIA: Decrease agitation, psychosis after discharge, outpatient treatment. [facility]# [id number]
[2017-09-23] MEDS: Atorvastatin Calcium 10 MG TAB PO SCH (21:35)
--- NOTE | 2017-09-23 22:19 | History & Physical ---
ADMIT DATE: HISTORY OF PRESENT ILLNESS: The patient is an 87-year-old female with long history of hypertension, hyperlipidemia, degenerative joint disease, dementia, admitted to [facility] for evaluation and treatment. The patient has been very confused. No chest pain, no shortness of breath, nausea, vomiting, fever or chills. PAST MEDICAL HISTORY: Significant for hypertension, hyperlipidemia, degenerative joint disease, dementia. PAST SURGICAL HISTORY: No recent surgery. ALLERGIES: ASPIRIN. SOCIAL HISTORY: No smoking, alcohol or drug use. FAMILY HISTORY: Noncontributory. REVIEW OF SYSTEMS: IMMUNO SYSTEM: No history of chronic immune disorder. CARDIOVASCULAR SYSTEM: She has history of hypertension. ENDOCRINE SYSTEM: No diabetes or thyroid problem. GASTROINTESTINAL SYSTEM: No upper or lower GI bleed. NEUROLOGICAL: She has no seizure disorder. MUSCULOSKELETAL SYSTEM: No muscular dystrophy. HEMATOLOGIC SYSTEM: No bleeding tendencies. RESPIRATORY SYSTEM: No asthma. GENITOURINARY: No dysuria or hematuria. PHYSICAL EXAMINATION: GENERAL: She is awake, not coherent. VITAL SIGNS: Temperature 99.3, heart rate 79, blood pressure 120/78. HEENT: Normocephalic. Pupils reacting equally to light and accommodation. Sclerae clear. NECK: Supple. Negative for lymphadenopathy, JVD or bruit. CHEST: Air bilaterally normal. No rales, rhonchi or wheezing. HEART: S1, S2 normal, no gallop rhythm. ABDOMEN: Soft, bowel sounds positive. EXTREMITIES: No edema. NEUROLOGICAL: She is awake, not coherent, moving upper and lower extremities. ASSESSMENT: 1. Hypertension. 2. Hyperlipidemia. 3. Degenerative joint disease. 4. Dementia. PLAN: The patient admitted to the hospital under Dr. Stover's service. Medical problem to be addressed during hospitalization is dementia. Medical problems addressed at discharge are hypertension and hyperlipidemia. The patient is medically stable for activity. Thank you, Dr. Stover, for asking me to see your patient. JOB# [id number]
[2017-09-24] MEDS: Multivitamin Tab PO SCH (10:11)
--- NOTE | 2017-09-24 13:35 | Internal Medicine Prog Note ---
Internal Medicine Subjective - Subjective Service Date: 09/24/17 Patient seen and examined:: with staff Patient is:: awake, non-verbal, in bed, confused Per staff patient has:: no adverse event Internal Medicine Objective - Physical Exam Vitals and I&O: Vital Signs Temp 98.5 F 09/24/17 06:55 Pulse 87 09/24/17 10:10 Resp 18 09/24/17 11:33 BP 150/71 09/24/17 10:11 Pulse Ox 99 09/24/17 06:55 Intake & Output 09/23/17 09/24/17 09/24/17 18:59 06:59 18:59 Intake Total 950 250 Balance 950 250 Intake: Oral 950 250 Other: # Voids 2 # Bowel Movements 2 0 Active Medications: Current Medications Acetaminophen (Tylenol) 650 mg PO Q4HR PRN PRN Reason: Pain or Fever >101 Stop: 11/21/17 15:36 Al Hydrox/Mg Hydrox/Simethicone (Maalox) 30 ml PO Q4HR PRN PRN Reason: GI DISTRESS Stop: 11/21/17 15:27 Atorvastatin Calcium (Lipitor) 10 mg PO HS [place]RIA PRN Reason: Protocol Stop: 11/21/17 20:59 Last Admin: 09/23/17 21:35 Dose: 10 mg Donepezil HCl (Aricept) 10 mg PO HS [place] Stop: 11/21/17 20:59 Last Admin: 09/23/17 21:35 Dose: 10 mg Heparin Sodium (Porcine) (Heparin) 5,000 units SUBQ Q12H [place] Stop: 11/22/17 08:59 Last Admin: 09/24/17 10:11 Dose: 5,000 units Hydrochlorothiazide (Hctz) 25 mg PO DAILY [place] Stop: 11/22/17 08:59 Last Admin: 09/24/17 10:11 Dose: 25 mg Lorazepam (Ativan) 0.5 mg PO Q4HR PRN; Protocol PRN Reason: Anxiety Stop: 10/22/17 15:27 Losartan Potassium (Cozaar) 100 mg PO DAILY [facility] Stop: 11/22/17 08:59 Last Admin: 09/24/17 10:10 Dose: 100 mg Magnesium Hydroxide (Milk Of Magnesia) 30 ml PO HS PRN PRN Reason: Constipation Magnesium Hydroxide (Milk Of Magnesia) 30 ml PO DAILY PRN PRN Reason: Constipation Stop: 11/21/17 15:36 Memantine (Namenda) 5 mg PO DAILY [place] Stop: 11/23/17 08:59 Last Admin: 09/24/17 10:12 Dose: 5 mg Mirtazapine (Remeron) 7.5 mg PO HS [place] PRN Reason: Protocol Stop: 11/21/17 20:59 Last Admin: 09/23/17 21:34 Dose: 7.5 mg Miscellaneous (Clinical Monitoring) 1 ea [facility] DAILY PRN PRN Reason: RENAL Stop: 11/21/17 16:59 Multivitamins/Vitamin C (Theragran) 1 tab PO DAILY [place] Stop: 11/22/17 08:59 Last Admin: 09/24/17 10:11 Dose: 1 tab Zolpidem Tartrate (Ambien) 5 mg PO HS PRN PRN Reason: Insomnia Stop: 11/21/17 15:27 General: demented HEENT: NC/AT, PERRLA, EOMI, throat clear Neck: Supple, No JVD, No thyromegaly, +2 carotid pulse wo bruit, No LAD Lungs: CTAB Cardiovascular: RRR, Normal S1, Normal S2, without murmur Abdomen: non-tender, non-distended Neurological: no change Internal Medicine Assmt/Plan - Assessment Assessment: 1.HTN. 2.HYPERLIPIDEMIA. 3.DJD. 4.DEMENTIA. - Plan Plan: CONTINUE ON CURRENT MEDICATION AND DIET.
[2017-09-24] MEDS: Atorvastatin Calcium 10 MG TAB PO SCH (20:27)
--- NOTE | 2017-09-25 03:53 | Progress Notes ---
DATE: 09/24/2017 Case was discussed with staff of the patient. She continues to be confused, irritable. Continues to have poor insight. Continues to be unable to participate in meaningful conversation or make safe plan for self-care, unpredictable, impulsive, needing redirection. She has been compliant with the medication with no side effects. I added Remeron 7.5 mg at bedtime. Today, I will be adding Namenda to her medications, already on Aricept 10 mg at bedtime. We will continue to work with the patient in group therapy, milieu therapy, and adjust medications as needed. JOB# [id number]
[2017-09-25] MEDS: Multivitamin Tab PO SCH (08:39)
--- NOTE | 2017-09-25 19:18 | Internal Medicine Prog Note ---
Internal Medicine Subjective - Subjective Service Date: 09/25/17 Patient seen and examined:: with staff (SHE IS DOING BETTER) Patient is:: awake, non-verbal, in bed, confused Per staff patient has:: no adverse event Internal Medicine Objective - Physical Exam Vitals and I&O: Vital Signs Temp 97.4 F 09/25/17 14:00 Pulse 74 09/25/17 14:00 Resp 18 09/25/17 14:00 BP 102/48 09/25/17 14:00 Pulse Ox 97 09/25/17 14:00 Intake & Output 09/25/17 09/25/17 09/26/17 06:59 18:59 06:59 Intake Total 720 Balance 720 Intake: Oral 720 Other: # Voids 3 # Bowel Movements 0 Active Medications: Current Medications Acetaminophen (Tylenol) 650 mg PO Q4HR PRN PRN Reason: Pain or Fever >101 Stop: 11/21/17 15:36 Al Hydrox/Mg Hydrox/Simethicone (Maalox) 30 ml PO Q4HR PRN PRN Reason: GI DISTRESS Stop: 11/21/17 15:27 Atorvastatin Calcium (Lipitor) 10 mg PO HS [place] PRN Reason: Protocol Stop: 11/21/17 20:59 Last Admin: 09/24/17 20:27 Dose: 10 mg Donepezil HCl (Aricept) 10 mg PO HS [facility] Stop: 11/21/17 20:59 Last Admin: 09/24/17 20:27 Dose: 10 mg Heparin Sodium (Porcine) (Heparin) 5,000 units SUBQ Q12H [facility] Stop: 11/22/17 08:59 Last Admin: 09/25/17 08:38 Dose: 5,000 units Hydrochlorothiazide (Hctz) 25 mg PO DAILY [facility] Stop: 11/22/17 08:59 Last Admin: 09/25/17 08:40 Dose: 25 mg Lorazepam (Ativan) 0.5 mg PO Q4HR PRN; Protocol PRN Reason: Anxiety Stop: 10/22/17 15:27 Losartan Potassium (Cozaar) 100 mg PO DAILY [facility] Stop: 11/22/17 08:59 Last Admin: 09/25/17 08:39 Dose: 100 mg Magnesium Hydroxide (Milk Of Magnesia) 30 ml PO HS PRN PRN Reason: Constipation Magnesium Hydroxide (Milk Of Magnesia) 30 ml PO DAILY PRN PRN Reason: Constipation Stop: 11/21/17 15:36 Memantine (Namenda) 5 mg PO DAILY [facility] Stop: 11/23/17 08:59 Last Admin: 09/25/17 08:40 Dose: 5 mg Mirtazapine (Remeron) 7.5 mg PO HS [place] PRN Reason: Protocol Stop: 11/21/17 20:59 Last Admin: 09/24/17 20:27 Dose: 7.5 mg Miscellaneous (Clinical Monitoring) 1 ea [facility] DAILY PRN PRN Reason: RENAL Stop: 11/21/17 16:59 Multivitamins/Vitamin C (Theragran) 1 tab PO DAILY [facility] Stop: 11/22/17 08:59 Last Admin: 09/25/17 08:39 Dose: 1 tab Zolpidem Tartrate (Ambien) 5 mg PO HS PRN PRN Reason: Insomnia Stop: 11/21/17 15:27 General: demented HEENT: NC/AT, PERRLA, EOMI, throat clear Neck: Supple, No JVD, No thyromegaly, +2 carotid pulse wo bruit, No LAD Lungs: CTAB Cardiovascular: RRR, Normal S1, Normal S2, without murmur Abdomen: non-tender, non-distended Neurological: no change Internal Medicine Assmt/Plan - Assessment Assessment: 1.HTN. 2.HYPERLIPIDEMIA. 3.DJD. 4.DEMENTIA. - Plan Plan: CONTINUE ON CURRENT MEDICATION AND DIET.
[2017-09-25] MEDS: Atorvastatin Calcium 10 MG TAB PO SCH (21:11)
--- NOTE | 2017-09-26 02:00 | Progress Notes ---
DATE: 09/25/2017 Case was discussed with staff of the patient. I also discussed the care with her daughter yesterday who asked for the patient to be ambulated because when she stays in bed for a long time when her relation becomes hard. I discussed with the nurse to make sure she gets physical therapy. The patient continues to be confused, unable to make safe plan for self-care. Unpredictable and impulsive, needing redirection and she is sleeping, eating well, feeds herself with her hands. No side effects. She is on Namenda. The daughter said the neurologist did give her Namenda ____ difference when she took it and no side effects with the medications. She is already on Aricept and we will continue outpatient group therapy, milieu therapy, and adjust medications as needed. JOB# [id number]
[2017-09-26] MEDS: Multivitamin Tab PO SCH (09:20)
--- NOTE | 2017-09-26 19:06 | Internal Medicine Prog Note ---
Internal Medicine Subjective - Subjective Service Date: 09/26/17 Patient seen and examined:: with staff (she is doing better) Patient is:: awake, non-verbal, in bed, confused Per staff patient has:: no adverse event Internal Medicine Objective - Physical Exam Vitals and I&O: Vital Signs Temp 98.4 F 09/26/17 14:00 Pulse 68 09/26/17 14:00 Resp 20 09/26/17 14:00 BP 95/59 09/26/17 14:00 Pulse Ox 94 09/26/17 14:00 Intake & Output 09/26/17 09/26/17 09/27/17 06:59 18:59 06:59 Intake Total 840 Balance 840 Intake: Oral 840 Other: # Voids 2 # Bowel Movements 0 Stool Characteristics Soft Soft Formed Formed Active Medications: Current Medications Acetaminophen (Tylenol) 650 mg PO Q4HR PRN PRN Reason: Pain or Fever >101 Stop: 11/21/17 15:36 Al Hydrox/Mg Hydrox/Simethicone (Maalox) 30 ml PO Q4HR PRN PRN Reason: GI DISTRESS Stop: 11/21/17 15:27 Atorvastatin Calcium (Lipitor) 10 mg PO HS [place] PRN Reason: Protocol Stop: 11/21/17 20:59 Last Admin: 09/25/17 21:11 Dose: 10 mg Donepezil HCl (Aricept) 10 mg PO HS [facility] Stop: 11/21/17 20:59 Last Admin: 09/25/17 21:13 Dose: 10 mg Heparin Sodium (Porcine) (Heparin) 5,000 units SUBQ Q12H [facility] Stop: 11/22/17 08:59 Last Admin: 09/26/17 09:17 Dose: 5,000 units Hydrochlorothiazide (Hctz) 25 mg PO DAILY [facility] Stop: 11/22/17 08:59 Last Admin: 09/26/17 09:17 Dose: 25 mg Lorazepam (Ativan) 0.5 mg PO Q4HR PRN; Protocol PRN Reason: Anxiety Stop: 10/22/17 15:27 Losartan Potassium (Cozaar) 100 mg PO DAILY [facility] Stop: 11/22/17 08:59 Last Admin: 09/26/17 09:19 Dose: 100 mg Magnesium Hydroxide (Milk Of Magnesia) 30 ml PO HS PRN PRN Reason: Constipation Magnesium Hydroxide (Milk Of Magnesia) 30 ml PO DAILY PRN PRN Reason: Constipation Stop: 11/21/17 15:36 Memantine (Namenda) 5 mg PO DAILY [facility] Stop: 11/23/17 08:59 Last Admin: 09/26/17 09:19 Dose: 5 mg Mirtazapine (Remeron) 7.5 mg PO HS [facility] PRN Reason: Protocol Stop: 11/21/17 20:59 Last Admin: 09/25/17 21:11 Dose: 7.5 mg Miscellaneous (Clinical Monitoring) 1 ea [facility] DAILY PRN PRN Reason: RENAL Stop: 11/21/17 16:59 Multivitamins/Vitamin C (Theragran) 1 tab PO DAILY [facility] Stop: 11/22/17 08:59 Last Admin: 09/26/17 09:20 Dose: 1 tab Zolpidem Tartrate (Ambien) 5 mg PO HS PRN PRN Reason: Insomnia Stop: 11/21/17 15:27 General: demented HEENT: NC/AT, PERRLA, EOMI, throat clear Neck: Supple, No JVD, No thyromegaly, +2 carotid pulse wo bruit, No LAD Lungs: CTAB Cardiovascular: RRR, Normal S1, Normal S2, without murmur Abdomen: non-tender, non-distended Neurological: no change Internal Medicine Assmt/Plan - Assessment Assessment: 1.HTN. 2.HYPERLIPIDEMIA. 3.DJD. 4.DEMENTIA. - Plan Plan: CONTINUE ON CURRENT MEDICATION AND DIET.
--- NOTE | 2017-09-26 20:33 | Progress Notes ---
DATE: 09/26/2017 Case was discussed with staff of the patient, reviewed records. The patient continues to be demented, confused, continues to have poor insight and PT tried to help her with physical therapy to have her ambulate; however, she got too exhausted very easily and so far we will continue to try to prompt her and she is currently in the dining room. No side effects of the medication, no sedation, no nausea. We will continue to work with the patient in group therapy, milieu therapy, and adjust the medications as needed. JOB# [id number]
[2017-09-26] MEDS: Atorvastatin Calcium 10 MG TAB PO SCH (20:56)
[2017-09-27] MEDS: Multivitamin Tab PO SCH (09:35)
--- NOTE | 2017-09-27 16:06 | General Progress Note ---
Subjective - Review of Systems Service Date: 09/27/17 Subjective: awake and alert resting comfortably Objective - Physical Exam Vitals and I&O: Vital Signs Temp 97.4 F 09/27/17 15:05 Pulse 93 09/27/17 15:05 Resp 18 09/27/17 15:05 BP 129/66 09/27/17 15:05 Pulse Ox 96 09/27/17 15:05 Intake & Output 09/26/17 09/27/17 09/27/17 18:59 06:59 18:59 Intake Total 840 0 500 Balance 840 0 500 Intake: Oral 840 0 500 Other: # Voids 2 2 3 # Bowel Movements 0 1 Stool Characteristics Soft Soft Formed Active Medications: Current Medications Acetaminophen (Tylenol) 650 mg PO Q4HR PRN PRN Reason: Pain or Fever >101 Stop: 11/21/17 15:36 Al Hydrox/Mg Hydrox/Simethicone (Maalox) 30 ml PO Q4HR PRN PRN Reason: GI DISTRESS Stop: 11/21/17 15:27 Atorvastatin Calcium (Lipitor) 10 mg PO HS [place] PRN Reason: Protocol Stop: 11/21/17 20:59 Last Admin: 09/26/17 20:56 Dose: 10 mg Donepezil HCl (Aricept) 10 mg PO HS [facility] Stop: 11/21/17 20:59 Last Admin: 09/26/17 20:56 Dose: 10 mg Heparin Sodium (Porcine) (Heparin) 5,000 units SUBQ Q12H [facility] Stop: 11/22/17 08:59 Last Admin: 09/27/17 09:49 Dose: Not Given Hydrochlorothiazide (Hctz) 25 mg PO DAILY [facility] Stop: 11/22/17 08:59 Last Admin: 09/27/17 09:49 Dose: Not Given Lorazepam (Ativan) 0.5 mg PO Q4HR PRN; Protocol PRN Reason: Anxiety Stop: 10/22/17 15:27 Losartan Potassium (Cozaar) 100 mg PO DAILY [facility] Stop: 11/22/17 08:59 Last Admin: 09/27/17 09:49 Dose: Not Given Magnesium Hydroxide (Milk Of Magnesia) 30 ml PO HS PRN PRN Reason: Constipation Magnesium Hydroxide (Milk Of Magnesia) 30 ml PO DAILY PRN PRN Reason: Constipation Stop: 11/21/17 15:36 Memantine (Namenda) 5 mg PO DAILY [facility] Stop: 11/23/17 08:59 Last Admin: 09/27/17 09:50 Dose: Not Given Mirtazapine (Remeron) 7.5 mg PO HS [place] PRN Reason: Protocol Stop: 11/21/17 20:59 Last Admin: 09/26/17 20:57 Dose: 7.5 mg Miscellaneous (Clinical Monitoring) 1 ea [facility] DAILY PRN PRN Reason: RENAL Stop: 11/21/17 16:59 Multivitamins/Vitamin C (Theragran) 1 tab PO DAILY [facility] Stop: 11/22/17 08:59 Last Admin: 09/27/17 09:35 Dose: 1 tab Zolpidem Tartrate (Ambien) 5 mg PO HS PRN PRN Reason: Insomnia Stop: 11/21/17 15:27 General: Alert, Cooperative HEENT: Atraumatic, PERRLA, EOMI Neck: Supple, JVD, Thyromegaly Cardiovascular: Regular rate, Normal S1, Normal S2 Lungs: Clear to auscultation Abdomen: Bowel sounds, Soft Assessment/Plan - Assessment Assessment: 1.HTN. 2.HYPERLIPIDEMIA. 3.DJD. 4.DEMENTIA. - Plan Plan: cont current treatment
[2017-09-27] MEDS: Atorvastatin Calcium 10 MG TAB PO SCH (21:01)
--- NOTE | 2017-09-27 23:39 | Progress Notes ---
DATE: 09/27/2017 SUBJECTIVE: Case discussed with staff of the patient. The patient continues to do the same. The staff trying to help her get out of bed. Apparently, she is weak. She is not able to do much. We are keep trying and hopefully if she does not respond, we are going to send her back to the [facility] as soon as possible. Sleeping better, eating actually she can feed herself with her hand. No side effects with the medication, no sedation, no nausea and we will continue to work with the patient in group therapy, milieu therapy, and adjust the medication as needed. Lab work, there was no lab work ____ the record. JOB# [id number]
[2017-09-28] MEDS: Multivitamin Tab PO SCH (09:48)
--- NOTE | 2017-09-28 14:37 | General Progress Note ---
Subjective - Review of Systems Service Date: 09/28/17 Subjective: awake and alert resting comfortably Objective - Physical Exam Vitals and I&O: Vital Signs Temp 97.9 F 09/28/17 06:50 Pulse 90 09/28/17 09:48 Resp 20 09/28/17 06:50 BP 129/69 09/28/17 09:48 Pulse Ox 96 09/28/17 06:50 Intake & Output 09/27/17 09/28/17 09/28/17 18:59 06:59 18:59 Intake Total 500 240 Balance 500 240 Intake: Oral 500 240 Other: # Voids 3 1 # Bowel Movements 1 1 Active Medications: Current Medications Acetaminophen (Tylenol) 650 mg PO Q4HR PRN PRN Reason: Pain or Fever >101 Stop: 11/21/17 15:36 Al Hydrox/Mg Hydrox/Simethicone (Maalox) 30 ml PO Q4HR PRN PRN Reason: GI DISTRESS Stop: 11/21/17 15:27 Atorvastatin Calcium (Lipitor) 10 mg PO HS [place] PRN Reason: Protocol Stop: 11/21/17 20:59 Last Admin: 09/27/17 21:01 Dose: 10 mg Donepezil HCl (Aricept) 10 mg PO HS [facility] Stop: 11/21/17 20:59 Last Admin: 09/27/17 21:01 Dose: 10 mg Heparin Sodium (Porcine) (Heparin) 5,000 units SUBQ Q12H [facility] Stop: 11/22/17 08:59 Last Admin: 09/28/17 09:48 Dose: 5,000 units Hydrochlorothiazide (Hctz) 25 mg PO DAILY [facility] Stop: 11/22/17 08:59 Last Admin: 09/28/17 09:48 Dose: 25 mg Lorazepam (Ativan) 0.5 mg PO Q4HR PRN; Protocol PRN Reason: Anxiety Stop: 10/22/17 15:27 Losartan Potassium (Cozaar) 100 mg PO DAILY [facility] Stop: 11/22/17 08:59 Last Admin: 09/28/17 09:48 Dose: 100 mg Magnesium Hydroxide (Milk Of Magnesia) 30 ml PO HS PRN PRN Reason: Constipation Magnesium Hydroxide (Milk Of Magnesia) 30 ml PO DAILY PRN PRN Reason: Constipation Stop: 11/21/17 15:36 Memantine (Namenda) 5 mg PO DAILY [facility] Stop: 11/23/17 08:59 Last Admin: 09/28/17 09:49 Dose: 5 mg Mirtazapine (Remeron) 7.5 mg PO HS [place] PRN Reason: Protocol Stop: 11/21/17 20:59 Last Admin: 09/27/17 21:01 Dose: 7.5 mg Miscellaneous (Clinical Monitoring) 1 ea [facility] DAILY PRN PRN Reason: RENAL Stop: 11/21/17 16:59 Multivitamins/Vitamin C (Theragran) 1 tab PO DAILY [facility] Stop: 11/22/17 08:59 Last Admin: 09/28/17 09:48 Dose: 1 tab Zolpidem Tartrate (Ambien) 5 mg PO HS PRN PRN Reason: Insomnia Stop: 11/21/17 15:27 Last Admin: 09/27/17 21:02 Dose: 5 mg General: Alert, Cooperative HEENT: Atraumatic, PERRLA, EOMI Neck: Supple, JVD, Thyromegaly Cardiovascular: Regular rate, Normal S1, Normal S2 Lungs: Clear to auscultation Abdomen: Bowel sounds, Soft Assessment/Plan - Assessment Assessment: 1.HTN. 2.HYPERLIPIDEMIA. 3.DJD. 4.DEMENTIA. - Plan Plan: cont current treatment Nutritional Asmnt/Malnutr-PDOC - Dietary Evaluation Malnutrition Findings (Please click <Entered> for more info): Nutritional Asmnt/Malnutrition Start: 09/28/17 11: 19 Text: Status: Active Freq: Document 09/28/17 11:19 [email or web address] (Rec: 09/28/17 11:37 [email or web address] Nutritional Asmnt/Malnutrition Patient General Information Nutritional Screening Moderate Risk Diagnosis Psychosis Pertinent Medical Hx/Surgical Hx HTN, hyperlipidemia, degenerative joint disease, dementia Current Diet Order/ Nutrition Support Mechanical soft ground Patient / S.O Not Indicated Pertinent Medications maalox, lipitor, cozaar, MOM Pertinent Labs (09/20) albumin 3.4 Nutritional Hx/Data Height 1.45 m Height (Calculated Centimeters) 144.8 Current Weight (lbs) 44.452 kg Weight (Calculated Kilograms) 44.5 Weight (Calculated Grams) 00228.1 [place] Body Weight 92.5 % [place] Body Weight 105 Body Mass Index (BMI) 21.2 Recent Weight Change No Weight Status Approriate GI Symptoms GI Symptoms None Difficult in: None Food Allergies No Cultural/Ethnic/Jainism Belief None indicated Skin Integrity/Comment: [place] 17 Current %PO Fair (50-74%) Estimated Nutritional Goals BEE in Kcals: Using Current wt Calories/Kcals/Kg 44.5 kg (CBW) Kcals Calculated 9428-8454 kcal/day (25-30 kcal /kg) Protein: Using Current wt Protein g/k-1.2 gm/kg Protein Calculated 45-55 gm/day Fluid: ml 9212-9301 ml/day (1 ml/kcal) Nutritional Problem 1. Problem Problem Inadequate oral intake related to Etiology possible poor appetite aeb Signs/Symptoms: meeting <75% of nutrient needs Intervention/Recommendation Comments 1. Continue mechanical soft ground diet as tolerated by patient. 2. Consider adding Boost with meals to increase calorie/ protein intake Expected Outcomes/Goals Expected Outcomes/Goals Oral intake >75% of meals, weight stable, nutrition related labs normalize
[2017-09-28] MEDS: Atorvastatin Calcium 10 MG TAB PO SCH (20:50)
--- NOTE | 2017-09-29 00:52 | Progress Notes ---
DATE: 09/28/2017 Case discussed with staff of the patient, reviewed records. The patient has been more or less doing the same. No out of control behavior. She is sleeping better. She can feed herself with her hand, cannot use the fork. She is demented, confused, unable to make safe plan. I do not think we will see much more progression. I tried to get her to do PT; however, the staff reports she gets exhausted very easily and her daughter was concerned that her ambulation will get worse if she stayed in bed for a long period of time; however, in order to shorten her stay here, I do plan to discharge her tomorrow and so far no side effects with the medication, no sedation, no nausea and we will continue outpatient group therapy, milieu therapy, and adjust medications. JOB# [id number]
[2017-09-29] MEDS: Multivitamin Tab PO SCH (09:43)
--- NOTE | 2017-09-29 18:32 | Discharge Summary ---
DATE OF DISCHARGE: 09/29/2017 IDENTIFYING INFORMATION: The patient is an 87-year-old female. REASON FOR THE ADMISSION: The patient to transfer from medical floor because of agitation. The patient herself was a poor historian. She is demented, confused, gets sometimes easily agitated, irritable, staying in bed most of the time. Unable to participate in meaningful conversation or make safe plan for self-care. Diagnosed with dementia. The patient is a well-known case to me, I have seen her at [facility]. COURSE IN THE HOSPITAL: The patient was continued on medication prior to admission, which is Aricept 10 mg at bedtime. She was on losartan, magnesium. I added Namenda 5 mg daily, Remeron was continued 7.5 mg at bedtime. The patient also progressively got less agitated. She was sleeping well, eating well. She was staying in bed. I tried to get Physical Therapy to try to help the patient get out and walk; however, they felt she got exhausted very easily, so I talked to her daughter who reported that she was tried on Namenda in the past by the neurologist, but he saw no progress, so she took her off. However, I will keep her on a small dose and at this point, the patient is no longer meeting criteria for further inpatient treatment as she could continue rehabilitation if she can do it at [facility] and the patient will be discharged to a lesser level of care. FINAL DIAGNOSES: Psychosis, not otherwise specified, and dementia. MEDICAL DIAGNOSES: Hypertension, hyperlipidemia, degenerative joint disease. The patient will go back to [facility] and follow up with the psychiatrist and primary care physician. EXPECTED OUTCOME: Stable if the patient complies above. JOB# [id number]
== END 2017-09-29 16:35 | DRG 884 ==
LOC: GERO2 14:16 → GERO 09-24 13:35
PROVIDERS: ADMIT Psychiatry & Neurology Psychiatry; ATTEND Psychiatry & Neurology Psychiatry
DX: F03.91 Unspecified dementia, unspecified severity, with behavioral disturbance (principal); F29 Unspecified psychosis not due to a substance or known physiological condition; I10 Essential (primary) hypertension; E78.5 Hyperlipidemia, unspecified; M19.90 Unspecified osteoarthritis, unspecified site; Z66 Do not resuscitate
CPT/HCPCS: 97530; J1644; X3904; Z7610